=== PATIENT | male | born 1970 | race Caucasian/White ===

== ENCOUNTER 2017-04-20 20:47 | Emergency (ER) | payer MEDICARE | END 2017-04-20 22:39 | disposition home or self-care (01) | LOC: ER1 20:47 | DX: S61.213A Laceration without foreign body of left middle finger without damage to nail, initial encounter (principal); F41.9 Anxiety disorder, unspecified; F17.290 Nicotine dependence, other tobacco product, uncomplicated; Z23 Encounter for immunization; W26.0XXA Contact with knife, initial encounter; Y93.G1 Activity, food preparation and clean up; Z79.899 Other long term (current) drug therapy | CPT/HCPCS: 12001; 90471; 90715; 99283 ==